=== PATIENT | male | born 1965 | race Caucasian/White ===

== ENCOUNTER → 2018-04-10 | Outpatient (CLI) | payer BC ==
--- NOTE | 2018-04-10 10:05 | US ---
EXAMINATION TYPE: US prostate transrectal DATE OF EXAM: 04/10/2018 COMPARISON: NONE CLINICAL HISTORY: R97.20 elevated PSA levels. This examination was performed using the transrectal probe. EXAM MEASUREMENTS: Gland Size: 4.0 x 2.6 x 4.2 cm Volume: 23.3 ml Predicted PSA: 2.796 Actual PSA (if available):4.4 Seminal vesicles are unremarkable on initial images. Prostate gland is overall normal in size with so me central calcifications in the transitional zone. No definitive hypoechoic nodules are present. IMPRESSION: Normal size prostate gland without suspicious nodules. Consider random ultrasound guided sampling due to slight discordance of actual PSA from predicted PSA. Predicted PSA = volume x 0.12 ng/ml Calculated Volume = 0.5236 x L x W x H
== END | disposition home or self-care (01) ==
LOC: RADUSMAIN 09:06
PROVIDERS: ATTEND Family Medicine
DX: R97.20 Elevated prostate specific antigen [PSA] (principal)
CPT/HCPCS: 76872

== ENCOUNTER → 2019-10-31 | Outpatient (CLI) | payer BC ==
--- NOTE | 2019-10-31 10:02 | US ---
EXAMINATION TYPE: US abdomen complete DATE OF EXAM: 10/31/2019 COMPARISON: NONE CLINICAL HISTORY: 54-year-old male R74.8 elevated liver enzymes. TECHNIQUE: Multiple sonographic images of the abdomen are obtained. FINDINGS: EXAM MEASUREMENTS: Liver Length: 15.9 cm Gallbladder Wall: 0.2 cm CBD: 0.3 cm Spleen: 10.7 cm Right Kidney: 10.5 x 6.0 x 4.1 cm Left Kidney: 11.9 x 6.4 x 5.2 cm Pancreas: The majority is visualized and shows no gross abnormality. Liver: wnl Gallbladder: multiple non mobile hyperechoic foci along gallbladder wall, possible polyps measuring up to 5 mm Evidence for sonographic Galvez's sign: no CBD: visualized portions wnl, limited by overlying bowel gas Spleen: wnl Right Kidney: wnl Left Kidney: wnl Upper IVC: wnl Abd Aorta: Measures up to 2.3 cm proximally, within normal limits. IMPRESSION: 1. Numerous nonmobile nodules along the gallbladder wall measuring up to 5 mm, suspected gallbladder wall polyps. Six-month follow-up gallbladder ultrasound recommended to reassess. 2. No biliary ductal dilatation.
== END | disposition home or self-care (01) ==
LOC: RADUSWWP 08:05
PROVIDERS: ATTEND Family Medicine
DX: K82.8 Other specified diseases of gallbladder (principal)
CPT/HCPCS: 76700

== ENCOUNTER → 2020-08-28 | Outpatient (CLI) | payer BC ==
--- NOTE | 2020-08-28 09:25 | US ---
EXAMINATION TYPE: US gallbladder DATE OF EXAM: 08/28/2020 COMPARISON: US 10/31/19 CLINICAL HISTORY: K82.4 Cholesterolosis of gallbladder. EXAM MEASUREMENTS: Liver Length: 16.0 cm Gallbladder Wall: 0.2 cm CBD: 0.3 cm Right Kidney: 10.9 x 6.2 x 5.7 cm Pancreas: wnl Liver: Thick walled echogenic mass with through transmission = 2.6 x 2.2 x 1.8 cm. ? complex cyst d/ t through transmission Gallbladder: multiple polyps seen again. Largest = 5.0 cm Evidence for sonographic Galvez's sign: No CBD: wnl Right Kidney: wnl IMPRESSION: 1. Cholelithiasis. Some adherent stone or gallbladder polyps may also be present. 2. Echogenic masslike area posterior through enhancement. This may be an interval finding. Recommend CT with contrast for additional evaluation. Alternatively, MRI liver can be performed.
== END ==
LOC: RADUSWWP 06:55
PROVIDERS: ATTEND Surgery
DX: K80.20 Calculus of gallbladder without cholecystitis without obstruction (principal)
CPT/HCPCS: 76705

== ENCOUNTER → 2023-09-07 | Outpatient (CLI) | payer BC ==
--- NOTE | 2023-09-07 19:34 | MR ---
EXAMINATION TYPE: MR Prostate wo/w con DATE OF EXAM: 09/07/2023 10:07 AM COMPARISON: Ultrasound.. CLINICAL INDICATION:Male, 57 years old with history of C61 MALIGNANT NEOPLASM OF PROSTATE; PROSTATE C ANCER-INCREASE IN PSA TECHNIQUE: Multi-planar, multi-sequence imaging of the pelvis is performed prior to and following the uncomplicated administration of bolus intravenous gadolinium. CONTRAST: 9 Gadavist Interpretive Criteria: PI-RADS v2.1 SERUM PSA: PSA=06/2023-07, 03/2023-0.6, 12/2021-.33 SURGICAL PATHOLOGY: No data available. FINDINGS: Suspected postsurgical changes of the prostate gland. No abnormal soft tissue in the surgical bed. SEMINAL VESICLES (SV): Symmetric and unremarkable. PERIPROSTATIC TISSUES: Unremarkable. LYMPH NODES: No enlarged pelvic lymph node. REMAINING PELVIS: Bladder wall is within normal limits given distention. No abnormal free or organized intrapelvic fluid collection. No pathologic bowel dilation or mural thickening. Colonic diverticula are present. No hernia visualized OSSEOUS STRUCTURES: No suspicious osseous abnormality. IMPRESSION: 1. No suspicious lymph nodes or masses. 2. Suspected postsurgical changes to the prostate gland. No suspicious masses definitively visualize d. Gallium-68 PSMA PET/CT may be of more utility finding clinically significant prostate cancer
== END | disposition home or self-care (01) ==
LOC: RADMRIMAIN 08:51
PROVIDERS: ATTEND Family Medicine
DX: C61 Malignant neoplasm of prostate (principal)
CPT/HCPCS: 72197; A9585

== ENCOUNTER → 2024-09-06 | Outpatient (CLI) | payer BC ==
--- NOTE | 2024-09-07 16:20 | PE ---
EXAMINATION TYPE: PET CT fusion skull to thigh DATE OF EXAM: 09/06/2024 CLINICAL INDICATION:Male, 58 years old with history of C61 prostate ca; history of HIFU TECHNIQUE: Following the intravenous administration of 4.9 mCi of Ga-68 Illuccix (PSMA), whole body images are performed from the skull vertex to the midthigh. Images are reviewed on the computer in the coronal, axial, and sagittal planes. Reconstructed rotating images are created on independent [employer] rkstation and reviewed on the computer. A non-contrast CT is performed in conjunction with the PET scan. CT DLP: 867.5 mGycm, Automated exposure control for dose reduction was used. COMPARISON: CT None, PET/CT None, MRI: 09/07/2023, US: 04/10/2018 FINDINGS: Mediastinal SUV mean is 1.4. Hepatic parenchyma SUV mean is 4.6. SKULL BASE AND NECK: No suspicious radiotracer activity. CHEST, MEDIASTINUM, AND HILAR REGION: No suspicious radiotracer activity. ABDOMEN AND PELVIS: Focal radiotracer uptake within the central prostate gland corresponding to focal region of ureteral dilatation on concurrent MR prostate. Demonstrates a maximum SUV of 40.6. MUSCULOSKELETAL STRUCTURES: No suspicious radiotracer activity. OTHER CT: Mild mucosal thickening of the ethmoid sinuses and maxillary sinuses. Bilateral carotid bul b calcifications. Right-sided palatine tonsilliths. Small coronary arterial calcification. Mild cardi omegaly. Minimal atherosclerotic calcification of the aorta and its branches. Distal colonic divertic ulosis without evidence for acute diverticulitis. Left renal cyst measuring up to 2.0 cm. No follow-u p recommended. Right hepatic lobe indeterminate 2.3 cm lesion without radiotracer uptake. IMPRESSION: 1. Focal radiotracer uptake within the central prostate gland in the region of the prosthetic urethr a on concurrent MR. This is likely related to prior treatment. Residual periurethral prostate maligna ncy is not excluded. No other suspicious radiotracer uptake to suggest metastasis. 2. Indeterminate hypodense lesion within the right hepatic lobe. Recommend further evaluation with M R abdomen with IV contrast (liver mass protocol). [facility], , 09/07/2024 4:18 PM
== END | disposition home or self-care (01) ==
LOC: RADPETMAIN 14:11
PROVIDERS: ATTEND Urology
DX: C61 Malignant neoplasm of prostate (principal)
CPT/HCPCS: 78815; A9596

== ENCOUNTER → 2024-10-08 | Outpatient (CLI) | payer BC ==
--- NOTE | 2024-10-09 17:07 | MR ---
EXAMINATION TYPE: MR abdomen wo/w con DATE OF EXAM: 10/08/2024 5:40 PM INDICATION: Patient age:Male; 59 years old; Reason for study: C61 MALIGNANT NEOPLASM OF PROSTATE; PHH. COMPARISON: PET CT 09/06/2024, gallbladder ultrasound 08/28/2020, abdominal ultrasound 08/31/2019 TECHNIQUE: Multiplanar multi-sequence imaging was performed without and with IV contrast. The patie nt was given 9 ccs of Gadobutrol intravenously and dynamic imaging was performed. Post IV contrast hernandez btraction images were also submitted for review. FINDINGS: LOWER CHEST: Mild cardiomegaly.. ABDOMEN Liver: Noncirrhotic morphology. No significant fatty infiltration. Segment 6/7 T2 hyperintense thin w all lesion measuring 1.7 x 2.7 x 1.7 cm in AP, CC, and TV dimensions (series 601, image 56). Demonstr ates peripheral nodular discontinuous enhancement with centripetal fill-in on delayed imaging. There is complete fill in on the 9 minute delayed imaging. Gallbladder and Bile ducts: Contracted gallbladder with tiny gallstones. No biliary ductal dilatation .. Pancreas: Unremarkable. Spleen: Unremarkable. Adrenal glands: Unremarkable. Kidneys: No hydronephrosis. Left renal partially exophytic thin-walled T2 hyperintense nonenhancing 2 .0 cm simple cyst. No follow-up recommended. Stomach and Bowel: No evidence for bowel obstruction. Scattered descending colon diverticulosis witho ut evidence for acute diverticulitis.. Peritoneum: No evidence of pneumoperitoneum, free fluid, or adenopathy. Vasculature: Unremarkable. No aortic aneurysm. Abdominal wall: Unremarkable. Musculoskeletal: The osseous structures appear intact. IMPRESSION: Right hepatic lobe 2.7 cm lesion with enhancement characteristics consistent with a benign hemangioma . [facility], , 10/09/2024 5:04 PM
== END | disposition home or self-care (01) ==
LOC: RADMRIMAIN 16:43
PROVIDERS: ATTEND Urology
DX: C61 Malignant neoplasm of prostate (principal); K76.89 Other specified diseases of liver
CPT/HCPCS: 74183; A9585